=== PATIENT | male | born 1975 | race Hispanic/Latino ===

== ENCOUNTER 2018-04-02 18:57 | Inpatient (IN) | payer MEDICAID ==
[~2018-04-02] VITALS: Ht 172.7 cm; Wt 96.0 kg
--- NOTE | 2018-04-02 19:15 | NUR ---
PT SENT BACK TO WAITING ROOM TO AWAIT ROOM ASSIGNMENT.
--- NOTE | 2018-04-02 19:26 | NUR ---
TO ROOM 6 VIA WC IN STABLE CONDITION.
[2018-04-02 20:18] LABS: URINE BILIRUBIN - DIPSTICK NEGATIVE (NEGATIVE); URINE BLOOD DIPSTICK TRACE-INTACT (NEGATIVE); URINE COLOR YELLOW; URINE GLUCOSE - DIPSTICK NEGATIVE (NEGATIVE); URINE KETONE NEGATIVE (NEGATIVE); URINE LEUK ESTERASE NEGATIVE (NEGATIVE); URINE NITRITE - DIPSTICK NEGATIVE (Negative); URINE PROTEIN - DIPSTICK TRACE mg/dL (NEG-TRACE); URINE SPECIFIC GRAVITY 1.015
[2018-04-02 20:19] LABS: HEMATOCRIT 45.7 % (39.0-50.0); HEMOGLOBIN 16.1 g/dl (14.0-18.0); IMMATURE GRANULOCYTES 0.5 % (0.0-5.0); MEAN CORPUSCULAR HGB 32.1 pG CALC (26.0-32.0); MEAN CORPUSCULAR HGB CONC 35.2 g/L CALC (32.0-36.0); NEUT# 16.86 thou/uL (1.82-7.42); RED BLOOD COUNT 5.02 mill/uL (4.70-6.10); RED CELL DISTRI WIDTH 12.4 % (11.5-15.5); URINE CLARITY CLEAR
[2018-04-02 20:28] LABS: ALKALINE PHOSPHATASE 94 u/l (38-126); AMYLASE 71 u/l (30-110); ANION GAP 21 (6-22 (CALC)); BUN 15 mg/dL (9-20); BUN/CREATININE RATIO 22 (12-20 (CALC)); CARBON DIOXIDE 25 mmol/l (22-30); CHLORIDE 103 mmol/l (95-108); CREATININE 0.7 mg/dL (0.7-1.3); GFR > 60 ML/MIN (>=60 (CALC)); GFR FOR AFR.AMER. > 60 ML/MIN (>=60 (CALC)); LIPASE 55 u/l (23-300); POTASSIUM 4.1 mmol/l (3.5-5.1); SGOT/AST 64 u/l (17-59); SGPT/ALT 97 u/l (21-72); SODIUM 145 mmol/l (137-146); TOTAL PROTEIN 8.5 g/dL (6.3-8.2)
--- NOTE | 2018-04-02 20:45 | NUR ---
PT UNDERSTANDS HE IS TO HAVE CT SCAN OF ABDOMEN TO R/O APPY. PT IS NPO
--- NOTE | 2018-04-02 21:28 | NUR ---
PT BACK FROM CT. WAITING ON RESULTS. FAMILY AT BEDSIDE.
--- NOTE | 2018-04-02 22:10 | NUR ---
PT AWARE HE IS GOING TO OR TONIGHT. STATES LAST INTAKE WAS 1500 TODAY. MEDICATED WITH TORADOL FOR PAIN 04/16 AND ZOSYN UP.
[2018-04-02 22:17] LABS: PROTHROMBIN TIME 10.9 SECONDS (9.0-12.5)
--- NOTE | 2018-04-02 22:20 | NUR ---
NANDA, TESTER/LIFT TRUCKER IN WITH
--- NOTE | 2018-04-02 22:55 | NUR ---
OR HERE FOR PT. REPORT GIVEN.
--- NOTE | 2018-04-02 23:07 | NUR ---
PT TO OR, CALLED FLOOR FOR REPORT MOO WILL CALL BACK.
--- NOTE | 2018-04-02 23:38 | NUR ---
CALLED THE FLOOR AGAIN TO GIVE REPORT. NURSE STILL BUSY
--- NOTE | 2018-04-02 23:54 | NUR ---
REPORT GIVEN TO CHAPO CORTÉS.
[2018-04-03] VITALS (9 sets, daily range): BP systolic 97–126; BP diastolic 55–64
--- NOTE | 2018-04-03 01:40 | NUR ---
PATIENT ADMITTED FROM OR VIA STRETCHER WITH ER STAFF IN ATTENDANCE. PATIENT IS AWAKE ALERT AND ORIENTEDX3. MOSTLY FAROESE SPEAKING. MIN ASSIST TO TRANSFER FROM STRETCHER TO THE BED. PATIENT WITH IV SITE TO LEFT AC WITH IVF NS PATENT AND INFUSING AT 125CC/HR. PATIENT TAKING SIPS OF WATER-TOLERATING WELL AT THIS TIME. DENIES ANY N/V. PATIENT WITH 3 SMALL INCISIONS TO ABD INTACT WITH DERMABOND-NO DRAINAGE AT THIS TIME. ABD IS SOFT WITH HYPOACTIVE BS. LUNGS ARE CLEAR-ENCOURAGED CDB EXERCISES. SCD TO BLE. PEDAL PULSE+, NO EDEMA. PATIENT STATES THAT HIS LAST BM WAS YESTERDAY AFTERNOON. WOKE UP WITH RLQ PAIN YESTERDAY-WENT TO [facility] AND WAS SENT TO THE ER. LIVES WITH FAMILY. DENIES ANY ALLERGIES. ORIENTED TO ROOM AND SURROUNDINGS. INSTRUCTED ON USE OF NURSE CALL LIGHT SYSTEM AND TV REMOTE. CALL LIGHT IN REACH. WILL CONT TO MONITOR.
--- NOTE | 2018-04-03 05:00 | NUR ---
PATIENT RESTING IN BED-C/O OF POST-OP RLQ PAIN. 4/10 ON PAIN SCALE. MEDICATED WITH PERCOCET 5/325MG PO. TAKING PO FLUIDS WITHOUT ANY DIFFICULTY. DENIES ANY N/V. FAMILY RESTING AT BEDSIDE. IVF PATENT AND INFUSING VIA LEFT AC SITE AT 125CC/HR. CALL LIGHT IN REACH. WILL CONT TO MONITOR. M
--- NOTE | 2018-04-03 05:54 | NUR ---
PATIENT VOIDED 600CC OF DC URINE IN URINAL. PATIENT STATES RELIEF FROM PERCOCET RECIEVED EARLIER. TORADOL GIVEN ORDERED. IVF NS PATENT AND INFUSING AT 125CC/HR. SITE APPEARS HEALTHY AND ZOSYN HUNG ORDERED. CALL LIGHT IN REACH. CALL LIGHT IN REACH. WILL CONT TO MONITOR.
--- NOTE | 2018-04-03 07:30 | NUR ---
REPORT RECIEVED FROM CHAPO CORTÉS. PT RESTING IN BED. NO S/S OF DISTRESS NOTED. FAMILY AT BEDSIDE. CALL LIGHT IN REACH. WILL CONTINUE TO MONITOR.
--- NOTE | 2018-04-03 07:45 | NUR ---
PT ASSESSMENT COMPLETE. PT A/O X3. SPEECH IS CLEAR. #20 LAC NS @125. SITE APPEARS HEALTHY. RESP EVEN AND UNLABORED. LUNG SOUNDS CLEAR. PT HAS 3 SMALL INCISION TO ABD. INTACT W/ DERMABOND, NO VISIBLE DRAINAGE. ABD ROUND AND SOFT. PT STATES PAIN 3 OUT OF 10 TO INCISIONS ON ABD. RELAXATION AND REPOSITION TECHNIQUES ENFORCED. BOWEL SOUNDS ACTIVE X4. SCD TO BLE. STRONG PEDAL PULSES. PT DENIES ANY FURTHER NEEDS AT THIS TIME. FAMILY AT BESIDE. PLAN OF CARE DISCUSSED. PT AND FAMILY STATES UNDERSTANDING. SAFETY PRECAUTIONS IN PLACE. CALL LIGHT IN REACH. WILL CONTINUE TO MONITOR.
--- NOTE | 2018-04-03 11:20 | NUR ---
IN TO HANG PT ANTIBIOTIC. PT STATES PAIN 3 OUT OF 10 TO ABD. MEDICATED W/ 15MG TORADOL IV PER ORDER. WILL CONTINUE TO MONITOR.
--- NOTE | 2018-04-03 12:40 | NUR ---
DR. ASH IN TO SEE PT. PLAN OF CARE DISCUSSED. ALL QUESTIONS REGARDING POST SURGERY ANSWERED BY PT STATES UNDERSTANDING.
--- NOTE | 2018-04-03 13:30 | NUR ---
PT DISCHARGE INSTRUCTIONS DISCUSSED W/ CHERELLE ROB TO TRANSLATE IN [facility]. AT [facility]. ALL QUESTIONS ANSWERED AND TRANSLATED. PT AND STATE UNDERSTANDING
--- NOTE | 2018-04-03 13:40 | NUR ---
Discharge instructions given. Patient verbalizes understanding of same. Discharged in stable condition via Wheelchair to Home with spouse. All belongings sent with pt.
== END 2018-04-03 13:42 | disposition home or self-care (01) | DRG 343 ==
LOC: ED 18:57 → ED-I 21:20 → ED 22:00 → MS2 22:01
PROVIDERS: Emergency Medicine; ADMIT Internal Medicine; ATTEND Surgery
PROC: 0DTJ4ZZ Resection of Appendix, Percutaneous Endoscopic Approach (ICD-10-PCS; principal; 2018-04-02)
DX: K35.80 Unspecified acute appendicitis (principal)
CPT/HCPCS: J2710; Q9967

== ENCOUNTER 2023-03-24 10:23 | Emergency (ER) | payer SELFPAY ==
[~2023-03-24] VITALS: Ht 172.7 cm; Wt 99.7 kg
[2023-03-24 10:37] VITALS: BP 157/90
[2023-03-24 11:00] VITALS: BP 144/93
[2023-03-24] MEDS ORDERED: VOLTAREN1%GEL TOP (11:28)
[2023-03-24] MEDS ORDERED: NAPROXEN500 MG PO (11:28)
[2023-03-24 11:30] VITALS: BP 153/97
[2023-03-24 11:46] VITALS: BP 153/97
== END 2023-03-24 11:47 | disposition home or self-care (01) | DRG 556 ==
LOC: ED 10:23
DX: M25.562 Pain in left knee (principal); E78.00 Pure hypercholesterolemia, unspecified; K21.9 Gastro-esophageal reflux disease without esophagitis